=== PATIENT | male | born 1965 | race Caucasian/White ===

== ENCOUNTER 2022-02-26 17:26 | Inpatient (IN) | payer MEDICAID, OTHER ==
[~2022-02-26] VITALS: Ht 182.9 cm; Wt 71.5 kg
[2022-02-26] MEDS ORDERED: levoFLOXacin 500MG 100 ML IV ONE (19:15)
[2022-02-26 19:41] LABS: Basophils # (auto) 0 10 ^3/uL (0-0.2); Basophils % (auto) 0.6 % (0.0-2.0); Eosinophils # (auto) 0.1 10 ^3/uL (0-0.8); Eosinophils % (auto) 0.7 % (0.0-7.0); Hematocrit 44.1 % (41.0-53.0); Hemoglobin 14.9 g/dL (13.5-17.5); Lymphocytes % (auto) 13.9 % (10.0-50.0); Mean Corpuscular Hemoglobin 31.4 pg (28.0-32.0); Mean Corpuscular Hgb Conc. 33.7 g/dL (32.0-36.0); Mean Corpuscular Volume 93.1 fL (80.0-100.0); Monocytes # (auto) 0.3 10 ^3/uL (0-1.3); Monocytes % (auto) 4.8 % (0.0-12.0); Neutrophils # (auto) 5.6 10 ^3/uL (1.6-8.6); Nucleated Red Blood Cells % 0.1 %; Red Blood Cells 4.74 10^6/uL (4.5-5.90); Red Cell Distribution Width 13.7 % (11.8-14.3)
[2022-02-26 20:02] LABS: Albumin 3.5 g/dL (3.4-5.0); Calcium 9.5 mg/dL (8.5-10.1); Potassium 4.3 mmol/L (3.5-5.1)
[2022-02-26 20:04] LABS: BUN/Creatinine Ratio 16.1
[2022-02-26 20:15] LABS: Bilirubin, Total 0.5 mg/dL (0.2-1.0); Total Protein 7.4 g/dL (6.4-8.2)
[2022-02-27] MEDS ORDERED: ONDANSETRON HCL 4 MG/2 ML VIAL IV PRN (04:45)
[2022-02-27] MEDS ORDERED: DOCUSATE SOD 100 MG CAP PO PRN (04:45)
[2022-02-27] MEDS ORDERED: ALUM & MAG HYDROX-SIMETH LIQ(MAALOX) 30 ML PO PRN (04:45)
[2022-02-27] MEDS ORDERED: ACETAMINOPHEN 325 MG TAB PO PRN (04:45)
[2022-02-27] MEDS ORDERED: LORazepam 0.5 MG TAB PO PRN (04:45)
[2022-02-27] MEDS ORDERED: TEMAZEPAM 15 MG CAP PO PRN (04:45)
[2022-02-27 06:13] LABS: Basophils # (auto) 0.1 10 ^3/uL (0-0.2); Basophils % (auto) 0.9 % (0.0-2.0); Eosinophils # (auto) 0.1 10 ^3/uL (0-0.8); Eosinophils % (auto) 2.2 % (0.0-7.0); Hemoglobin 14.5 g/dL (13.5-17.5); Lymphocytes # (auto) 1.1 10 ^3/uL (0.4-5.4); Lymphocytes % (auto) 19.1 % (10.0-50.0); Mean Corpuscular Hemoglobin 32.4 pg (28.0-32.0); Mean Corpuscular Hgb Conc. 35.3 g/dL (32.0-36.0); Mean Corpuscular Volume 91.8 fL (80.0-100.0); Monocytes # (auto) 0.4 10 ^3/uL (0-1.3); Monocytes % (auto) 6.2 % (0.0-12.0); Neutrophils # (auto) 4.1 10 ^3/uL (1.6-8.6); Neutrophils % (auto) 71.6 % (37.0-80.0); Nucleated Red Blood Cells % 0.1 %; Red Blood Cells 4.47 10^6/uL (4.5-5.90); Red Cell Distribution Width 13.5 % (11.8-14.3); White Blood Cell 5.8 10^3/uL (4.4-10.8)
[2022-02-27 06:20] LABS: Potassium 4.4 mmol/L (3.5-5.1)
[2022-02-27 06:22] LABS: BUN/Creatinine Ratio 15.5
[2022-02-27] MEDS: HYDROcodone-ACET 5/325MG TAB PO PRN ×2 (08:12→22:58)
[2022-02-27 22:25] VITALS: BP 107/67
[2022-02-28 05:00] VITALS: BP 105/72
[2022-02-28 09:00] VITALS: BP 108/72
[2022-02-28] MEDS: MORPHINE SULFATE INJ 2 MG/ml SYRG IV PRN ×2 (10:00→16:13)
[2022-02-28] MEDS ORDERED: VANCOMYCIN PER PHARMACY 0 MG IV SCH (11:30)
[2022-02-28] MEDS ORDERED: VANCOMYCIN 1GM/250ML 250 ML IV ONE (12:00)
[2022-02-28 13:00] VITALS: BP 109/72
[2022-02-28] MEDS: CEFTRIAXONE SODIUM 2 GM in D5W 5% 50 ML IV SCH (14:40)
[2022-02-28 17:00] VITALS: BP 109/73
[2022-02-28 22:00] VITALS: BP 108/63
[2022-02-28] MEDS: VANCOMYCIN 1GM/250ML 250 ML IV SCH (23:22)
[2022-03-01 05:00] VITALS: BP 113/64
[2022-03-01 06:09] LABS: BUN/Creatinine Ratio 24.7; Calcium 8.8 mg/dL (8.5-10.1)
[2022-03-01] MEDS: VANCOMYCIN 1GM/250ML 250 ML IV SCH ×2 (08:55→18:42)
[2022-03-01 09:20] VITALS: BP 114/67
[2022-03-01] MEDS: HYDROcodone-ACET 5/325MG TAB PO PRN ×3 (11:45→21:24)
[2022-03-01] MEDS: CEFTRIAXONE SODIUM 2 GM in D5W 5% 50 ML IV SCH (11:46)
[2022-03-01 12:40] VITALS: BP 105/66
[2022-03-01 16:16] VITALS: BP 108/67
[2022-03-01 22:00] VITALS: BP 110/64
[2022-03-02 05:00] VITALS: BP 105/66
[2022-03-02] MEDS: VANCOMYCIN 1GM/250ML 250 ML IV SCH ×3 (05:58→22:04)
[2022-03-02 09:02] VITALS: BP 114/69
[2022-03-02] MEDS: CEFTRIAXONE SODIUM 2 GM in D5W 5% 50 ML IV SCH (09:37)
[2022-03-02] MEDS: HYDROcodone-ACET 5/325MG TAB PO PRN ×2 (10:32→22:05)
[2022-03-02 12:35] VITALS: BP 109/75
[2022-03-02 16:31] VITALS: BP 118/72
[2022-03-02 22:00] VITALS: BP 137/82
[2022-03-03 05:00] VITALS: BP 119/71
[2022-03-03] MEDS: VANCOMYCIN 1GM/250ML 250 ML IV SCH ×2 (05:49→15:32)
[2022-03-03 09:00] VITALS: BP 122/75
[2022-03-03] MEDS: CEFTRIAXONE SODIUM 2 GM in D5W 5% 50 ML IV SCH (09:35)
[2022-03-03 13:00] VITALS: BP 128/78
[2022-03-03 17:00] VITALS: BP 124/71
[2022-03-03 22:00] VITALS: BP 111/71
[2022-03-03] MEDS: HYDROcodone-ACET 5/325MG TAB PO PRN (23:04)
[2022-03-04] MEDS: VANCOMYCIN 1GM/250ML 250 ML IV SCH ×2 (02:02→12:00)
[2022-03-04 05:25] VITALS: BP 122/73
[2022-03-04 09:16] VITALS: BP 107/70
[2022-03-04] MEDS: CEFTRIAXONE SODIUM 2 GM in D5W 5% 50 ML IV SCH (09:26)
[2022-03-04 12:37] VITALS: BP 107/65
[2022-03-04 14:49] LABS: Basophils # (auto) 0.1 10 ^3/uL (0-0.2); Basophils % (auto) 1.1 % (0.0-2.0); Eosinophils # (auto) 0.2 10 ^3/uL (0-0.8); Eosinophils % (auto) 3.2 % (0.0-7.0); Hematocrit 41.9 % (41.0-53.0); Hemoglobin 14.9 g/dL (13.5-17.5); Lymphocytes # (auto) 1.1 10 ^3/uL (0.4-5.4); Lymphocytes % (auto) 19.3 % (10.0-50.0); Mean Corpuscular Hemoglobin 32.4 pg (28.0-32.0); Mean Corpuscular Hgb Conc. 35.5 g/dL (32.0-36.0); Mean Corpuscular Volume 91.3 fL (80.0-100.0); Monocytes # (auto) 0.5 10 ^3/uL (0-1.3); Monocytes % (auto) 8.7 % (0.0-12.0); Neutrophils # (auto) 3.7 10 ^3/uL (1.6-8.6); Neutrophils % (auto) 67.7 % (37.0-80.0); Nucleated Red Blood Cells % 0.9 %; Red Blood Cells 4.59 10^6/uL (4.5-5.90); Red Cell Distribution Width 13.4 % (11.8-14.3); White Blood Cell 5.5 10^3/uL (4.4-10.8)
[2022-03-04] MEDS ORDERED: CLIN300C8 PO (15:58)
[2022-03-04] MEDS ORDERED: CIPR500T4 PO (16:00)
[2022-03-04 16:05] LABS: INR 0.95 (0.9-1.15)
[2022-03-04 16:38] VITALS: BP 111/67
[2022-03-04 17:27] VITALS: BP 111/67
== END 2022-03-04 18:45 | disposition home or self-care (01) | DRG 344 ==
LOC: ER 17:30 → OVERFLOW 02-27 04:44 → EAST 02-27 22:09
PROVIDERS: ADMIT Hospitalist; ATTEND Internal Medicine
DX: M86.171 Other acute osteomyelitis, right ankle and foot (principal); L03.115 Cellulitis of right lower limb; L03.031 Cellulitis of right toe; L97.509 Non-pressure chronic ulcer of other part of unspecified foot with unspecified severity; Z20.822 Contact with and (suspected) exposure to COVID-19; M19.90 Unspecified osteoarthritis, unspecified site; Z72.0 Tobacco use; Z89.421 Acquired absence of other right toe(s); Z71.6 Tobacco abuse counseling
CPT/HCPCS: 36415; 73660; 73718; 80048; 80053; 80202; 82565; 84484; 85025; 85379; 85610; 87040; 87426; 93926; 96365; 96367; G0378; J0696; J1956; J7060

== ENCOUNTER → 2022-03-31 | Outpatient (CLI) | payer MEDICAID ==
[~2022-03-31] MED LIST: CIPR500T4 PO; CLIN300C8 PO
== END | disposition home or self-care (01) ==
LOC: LAB 14:56
PROVIDERS: ATTEND Podiatrist
DX: L03.116 Cellulitis of left lower limb (principal)
CPT/HCPCS: 87075; 87205